=== PATIENT | female | born 1935 | race Caucasian/White ===

== ENCOUNTER 2018-04-12 11:42 | Emergency (ER) | payer MEDICARE, OTHER ==
[~2018-04-12] VITALS: Ht 167.6 cm; Wt 90.2 kg
[2018-04-12 14:18] LABS: BASOPHILS % (AUTO) 0.4 % (0-1); EOSINOPHILS # (AUTO) 0.1 X10'3 (0-0.9); EOSINOPHILS % (AUTO) 1.8 % (0-6); HEMATOCRIT 44.4 % (35.0-45.0); HEMOGLOBIN 14.9 g/dl (12.0-16.0); LYMPHOCYTES # (AUTO) 1.1 X10'3 (1.1-4.8); LYMPHOCYTES % (AUTO) 19.5 % (21-51); MEAN CORPUSCULAR HEMOGLOBIN 33.7 PG (27.0-31.0); MEAN CORPUSCULAR HGB CONC 33.6 % (33.0-36.5); MEAN CORPUSCULAR VOLUME 100.3 FL (78-98); MEAN PLATELET VOLUME 7.8 FL (7.4-10.4); MONOCYTES # (AUTO) 0.7 X10'3 (0-0.9); MONOCYTES % (AUTO) 12.4 % (2-12); NEUTROPHILS # (AUTO) 3.8 X10'3 (1.8-7.7); NEUTROPHILS % (AUTO) 65.9 % (42-75); PLATELET COUNT 169 X10'3 (140-440); RED BLOOD COUNT 4.43 X10'6 (4.20-5.60); RED CELL DISTRIBUTION WIDTH 13.5 % (11.5-14.5); WHITE BLOOD COUNT 5.7 X10'3 (4.5-11.0)
[2018-04-12 14:38] LABS: ALANINE AMINOTRANSFERASE 58 U/L (12-78); ALBUMIN 3.8 G/DL (3.4-5.0); ALKALINE PHOSPHATASE 99 IU/L (46-116); ANION GAP 12 (8-16); ASPARTATE AMINO TRANSFERASE 112 U/L (10-37); BILIRUBIN,TOTAL 0.8 MG/DL (0.1-1.0); BLOOD UREA NITROGEN 6 MG/DL (7-18); CALCIUM 8.7 MG/DL (8.5-10.1); CHLORIDE 99 MMOL/L (99-107); CREATININE 0.67 MG/DL (0.40-0.90); POTASSIUM 3.4 MMOL/L (3.5-5.1); SODIUM 138 MMOL/L (135-145); TOTAL CARBON DIOXIDE 27.2 MMOL/L (24-32); TOTAL PROTEIN 7.5 G/DL (6.4-8.2); eGFR 84 ML/MIN
[2018-04-12 14:41] LABS: GLUCOSE 106 MG/DL (70-104)
[2018-04-12] MEDS ORDERED: FURO-150 PO (15:14)
[2018-04-12] MEDS ORDERED: POTA25TA11 PO (15:14)
[2018-04-12 15:51] VITALS: BP 159/94
== END 2018-04-12 15:52 | disposition home or self-care (01) ==
LOC: ER 11:42
DX: R60.9 Edema, unspecified (principal); I10 Essential (primary) hypertension; R06.02 Shortness of breath; Z98.890 Other specified postprocedural states; Z79.899 Other long term (current) drug therapy
CPT/HCPCS: 36415; 71045; 80053; 83880; 84484; 85025; 93005; 99284

== ENCOUNTER 2021-10-08 09:42 | Inpatient (IN) | payer MEDICARE, OTHER ==
[~2021-10-08] VITALS: Ht 165.1 cm; Wt 86.4 kg
[~2021-10-08 09:42] MED LIST: POTA25TA11 PO; iohexol 350MG/ML 100ml bottle IV ONE
[2021-10-08 10:24] LABS: BASOPHILS % (AUTO) 0.5 % (0-1); EOSINOPHILS # (AUTO) 0.1 X10'3 (0-0.9); HEMATOCRIT 38.7 % (35.0-45.0); HEMOGLOBIN 13.4 g/dl (12.0-16.0); LYMPHOCYTES # (AUTO) 0.8 X10'3 (1.1-4.8); LYMPHOCYTES % (AUTO) 14.7 % (21-51); MEAN CORPUSCULAR HEMOGLOBIN 33.1 PG (27.0-31.0); MEAN CORPUSCULAR HGB CONC 34.6 g/dL (33.0-36.5); MEAN CORPUSCULAR VOLUME 95.6 FL (78-98); MEAN PLATELET VOLUME 6.9 FL (7.4-10.4); MONOCYTES # (AUTO) 0.7 X10'3 (0-0.9); MONOCYTES % (AUTO) 12.4 % (2-12); NEUTROPHILS # (AUTO) 3.9 X10'3 (1.8-7.7); NEUTROPHILS % (AUTO) 71.4 % (42-75); PLATELET COUNT 154 X10'3 (140-440); RED BLOOD COUNT 4.05 X10'6 (4.20-5.60); WHITE BLOOD COUNT 5.4 X10'3 (4.5-11.0)
[2021-10-08] MEDS ORDERED: MELO-100 PO ×2 (10:42)
[2021-10-08 10:55] LABS: D-DIMER 1.26 MG/L FEU (0-0.50)
[2021-10-08 10:56] LABS: CLARITY,URINE SLIGHTLY CLOUDY (Clear); COLOR,URINE YELLOW (Yellow); GLUCOSE, URINE NEGATIVE (Neg); KETONES,URINE NEGATIVE (Neg); LEUKOCYTE ESTERASE ,URINE TRACE (Neg); NITRITES, URINE NEGATIVE (Neg); OCCULT BLOOD,URINE NEGATIVE (Neg); PH,URINE 7.5 (4.8-8.0); PROTEIN,URINE NEGATIVE (Neg)
[2021-10-08 11:09] LABS: UA COLLECTION TYPE CLN CATCH MIDSTREAM
[2021-10-08 11:09] LABS: ALANINE AMINOTRANSFERASE 34 U/L (12-78); ALBUMIN 3.2 G/DL (3.4-5.0); ALKALINE PHOSPHATASE 79 IU/L (46-116); ANION GAP 12 (8-16); ASPARTATE AMINO TRANSFERASE 81 U/L (10-37); BILIRUBIN,TOTAL 1.5 MG/DL (0.1-1.0); BLOOD UREA NITROGEN 5 MG/DL (7-18); BUN/CREATININE RATIO 8.9 (6.6-38.0); CALCIUM 8.2 MG/DL (8.5-10.1); CHLORIDE 79 MMOL/L (99-107); CREATININE 0.56 MG/DL (0.40-0.90); TOTAL CARBON DIOXIDE 28.8 MMOL/L (24-32); TOTAL PROTEIN 6.3 G/DL (6.4-8.2); eGFR > 90 ML/MIN
[2021-10-08 11:11] LABS: BACTERIA,URINE 4+ /HPF (Neg); MUCUS STRANDS NONE SEEN /LPF (Neg); RBC,URINE NONE SEEN /HPF (0-2); SQUAMOUS EPITHELIAL CELL,UR FEW /LPF (FEW); WBC,URINE 0-4 /HPF (0-4)
[2021-10-08 11:11] LABS: GLUCOSE 106 MG/DL (70-104)
[2021-10-08 11:20] LABS: SODIUM 120 MMOL/L (135-145)
[2021-10-08 11:21] LABS: POTASSIUM 2.8 MMOL/L (3.5-5.1)
[2021-10-08] MEDS ORDERED: iohexol 350MG/ML 100ml bottle IV ONE (12:00)
[2021-10-08] MEDS ORDERED: MECL-159 PO (12:12)
[2021-10-08] MEDS ORDERED: LOP12.5T PO (12:12)
[2021-10-08] MEDS ORDERED: CITA10TA93 PO (12:12)
[2021-10-08] MEDS ORDERED: ATOR20TA PO (12:12)
[2021-10-08] MEDS ORDERED: ROPI1TAB6 PO (12:12)
[2021-10-08] MEDS ORDERED: potassium Cl 20 mEq SR tablet PO STA (12:58)
[2021-10-08] MEDS ORDERED: PERFLUTREN PROTEIN-A MICROSPHR (Optison) 0.22 MG/ML 3ML VIAL IV ONE (15:50)
[2021-10-08] MEDS ORDERED: magnesium Cl slow-release 64mg tablet PO PRN (15:50)
[2021-10-08] MEDS ORDERED: mag hydrox/Alum hydrox/simeth 30ml oral suspension PO PRN (15:50)
[2021-10-08] MEDS ORDERED: acetaminophen 325mg tablet PO PRN ×2 (15:50)
[2021-10-08] MEDS ORDERED: bisacodyl 10mg suppository rectal RC PRN (15:50)
[2021-10-08] MEDS ORDERED: magnesium 2GM in 50ml NS 50 ML IV PRN (15:50)
[2021-10-08] MEDS ORDERED: diphenhydrAMINE 25mg capsule PO PRN (15:50)
[2021-10-08] MEDS ORDERED: acetaminophen 650mg rectal suppository RC PRN (15:50)
[2021-10-08] MEDS ORDERED: magnesium 4gm in 100ml NS 100 ML IV PRN (15:50)
[2021-10-08] MEDS ORDERED: POTASSIUM BICARB 20meq eff tab 20 MEQ TABLET.EFF PO PRN (15:50)
[2021-10-08] MEDS ORDERED: potassium CL 10mEq/100ml bag 100 ML IV PRN (15:50)
[2021-10-08] MEDS: normal saline 1000ml 1,000 ML IV SCH (16:05)
[2021-10-08] MEDS: levoFLOXACIN-Levaquin 750MG/D5 150 ML IV SCH (16:23)
[2021-10-08 17:18] LABS: ALBUMIN 3.4 G/DL (3.4-5.0); ANION GAP 11 (8-16); BLOOD UREA NITROGEN 5 MG/DL (7-18); BUN/CREATININE RATIO 8.2 (6.6-38.0); CALCIUM 8.4 MG/DL (8.5-10.1); CHLORIDE 81 MMOL/L (99-107); CREATININE 0.61 MG/DL (0.40-0.90); POTASSIUM 3.1 MMOL/L (3.5-5.1); SODIUM 122 MMOL/L (135-145); TOTAL CARBON DIOXIDE 30.3 MMOL/L (24-32); eGFR > 90 ML/MIN
[2021-10-08 17:19] LABS: HEMOGLOBIN A1C 5.4 % (4.5-6.2)
[2021-10-08 17:20] LABS: GLUCOSE 124 MG/DL (70-104)
[2021-10-08] MEDS ORDERED: meclizine 12.5mg tablet PO PRN (17:40)
[2021-10-08] MEDS: ROPINIRole 1mg tablet PO SCH (18:04)
--- NOTE | 2021-10-08 18:48 | NUR ---
KEYON GAN [phone], KHAI GAN [phone], HOME PHONE [phone] PLEASE CALL WITH UPDATES
[2021-10-08] MEDS: ipratropium/albuterol 3ml nebule NEB SCH ×2 (19:39→23:02)
[2021-10-08] MEDS: K and/or MAG REPLACEMENT MC SCH (20:00)
[2021-10-08] MEDS: docusate sod 100mg capsule PO SCH (20:00)
[2021-10-08] MEDS: atorvastatin 20mg tablet PO SCH (21:30)
[2021-10-08] MEDS: heparin, porcine 5000 units/ml vial SQ SCH (21:31)
[2021-10-08] MEDS: metoprolol tartrate 12.5mg (1/2 tablet) PO SCH (21:35)
[2021-10-08 22:11] LABS: CLARITY,URINE SLIGHTLY CLOUDY (Clear); COLOR,URINE YELLOW (Yellow); GLUCOSE, URINE NEGATIVE (Neg); KETONES,URINE NEGATIVE (Neg); LEUKOCYTE ESTERASE ,URINE NEGATIVE (Neg); NITRITES, URINE NEGATIVE (Neg); OCCULT BLOOD,URINE NEGATIVE (Neg); PROTEIN,URINE NEGATIVE (Neg); UROBILINOGEN,URINE 0.2 E.U/dL (0.2-1.0)
[2021-10-08 22:17] LABS: UA COLLECTION TYPE OTHER
[2021-10-08 22:19] LABS: BACTERIA,URINE 4+ /HPF (Neg); RBC,URINE 0-2 /HPF (0-2); SQUAMOUS EPITHELIAL CELL,UR MODERATE /LPF (FEW)
[2021-10-08] MEDS: ondansetron/PF 4mg/2ml inj IV PRN (23:01)
[2021-10-08 23:30] VITALS: BP 167/58
[2021-10-09] MEDS: normal saline 1000ml 1,000 ML IV SCH ×4 (01:20→23:32)
[2021-10-09 02:00] VITALS: BP 158/77
[2021-10-09] MEDS: ipratropium/albuterol 3ml nebule NEB SCH ×5 (03:10→20:13)
[2021-10-09 06:23] LABS: BASOPHILS % (AUTO) 0.3 % (0-1); EOSINOPHILS # (AUTO) 0.1 X10'3 (0-0.9); EOSINOPHILS % (AUTO) 1.2 % (0-6); HEMATOCRIT 38.4 % (35.0-45.0); HEMOGLOBIN 13.1 g/dl (12.0-16.0); LYMPHOCYTES # (AUTO) 0.9 X10'3 (1.1-4.8); LYMPHOCYTES % (AUTO) 20.4 % (21-51); MEAN CORPUSCULAR HGB CONC 34.2 g/dL (33.0-36.5); MEAN CORPUSCULAR VOLUME 96.6 FL (78-98); MEAN PLATELET VOLUME 7.7 FL (7.4-10.4); MONOCYTES # (AUTO) 0.7 X10'3 (0-0.9); MONOCYTES % (AUTO) 16.1 % (2-12); NEUTROPHILS # (AUTO) 2.8 X10'3 (1.8-7.7); PLATELET COUNT 156 X10'3 (140-440); RED BLOOD COUNT 3.98 X10'6 (4.20-5.60); RED CELL DISTRIBUTION WIDTH 13.1 % (11.5-14.5); WHITE BLOOD COUNT 4.6 X10'3 (4.5-11.0)
[2021-10-09 06:58] LABS: ALANINE AMINOTRANSFERASE 32 U/L (12-78); ALBUMIN/GLOBULIN RATIO 0.9 (1.1-1.5); ALKALINE PHOSPHATASE 68 IU/L (46-116); ANION GAP 11 (8-16); ASPARTATE AMINO TRANSFERASE 70 U/L (10-37); BILIRUBIN,TOTAL 1.6 MG/DL (0.1-1.0); BLOOD UREA NITROGEN 5 MG/DL (7-18); BUN/CREATININE RATIO 8.1 (6.6-38.0); CALCIUM 7.9 MG/DL (8.5-10.1); CHLORIDE 84 MMOL/L (99-107); CHOL/HDL RATIO 1.6 (0.00-4.99); CHOLESTEROL 127 MG/DL (0-200); CREATININE 0.62 MG/DL (0.40-0.90); GLUCOSE 106 MG/DL (70-104); HDL CHOLESTEROL 80 MG/DL (35-60); LDL CHOLESTEROL 33 MG/DL (50-100); MAGNESIUM 1.5 MG/DL (1.5-2.4); PHOSPHORUS 3.3 MG/DL (2.3-4.5); POTASSIUM 3.1 MMOL/L (3.5-5.1); SODIUM 123 MMOL/L (135-145); TOTAL CARBON DIOXIDE 27.8 MMOL/L (24-32); TOTAL PROTEIN 6.3 G/DL (6.4-8.2); TRIGLYCERIDES 47 MG/DL (20-135); eGFR > 90 ML/MIN
[2021-10-09 07:15] LABS: PLATELET ESTIMATE NORMAL; TOTAL CELLS COUNTED 100
[2021-10-09] MEDS: CITALOpram 10mg tablet PO SCH (07:23)
[2021-10-09] MEDS: heparin, porcine 5000 units/ml vial SQ SCH ×2 (07:23→22:23)
[2021-10-09] MEDS: metoprolol tartrate 12.5mg (1/2 tablet) PO SCH ×2 (07:24→22:27)
[2021-10-09] MEDS: POTASSIUM BICARB 20meq eff tab 20 MEQ TABLET.EFF PO PRN ×3 (07:24→17:24)
[2021-10-09] MEDS: docusate sod 100mg capsule PO SCH ×2 (07:24→20:00)
[2021-10-09] MEDS: levoFLOXACIN-Levaquin 750MG/D5 150 ML IV SCH (07:25)
[2021-10-09 08:00] VITALS: BP_SYST 113; BP_SYST 135; BP_SYST 173; BP_DIAS 57; BP_DIAS 59; BP_DIAS 87
[2021-10-09] MEDS: K and/or MAG REPLACEMENT MC SCH ×2 (08:00→19:00)
[2021-10-09 11:00] VITALS: BP 113/57
[2021-10-09 11:30] VITALS: BP 135/59
[2021-10-09] MEDS: ROPINIRole 1mg tablet PO SCH (17:00)
[2021-10-09] MEDS: ondansetron/PF 4mg/2ml inj IV PRN (17:00)
--- NOTE | 2021-10-09 17:40 | NUR ---
Tried to taper O2 down and patient sat went to 70. Ended up bumping up his O2 to 3L
[2021-10-09 18:00] VITALS: BP 155/71
--- NOTE | 2021-10-09 20:31 | NUR ---
report from Nahun and Nilay TORRES's
[2021-10-09] MEDS ORDERED: LORazepam 2 mg/ml vial IV PRN (21:55)
[2021-10-09 22:00] VITALS: BP 160/81
[2021-10-09] MEDS ORDERED: magnesium 2GM in 50ml NS 50 ML IV ONE (22:05)
[2021-10-09] MEDS: LORazepam 1 MG tablet PO PRN (22:25)
[2021-10-09] MEDS: atorvastatin 20mg tablet PO SCH (22:27)
[2021-10-09] MEDS ORDERED: diatr meglu/diatrizoate 30ml oral sol.-(3 dose) bottle PO ONE (22:50)
[2021-10-09] MEDS: diatr meglu/diatrizoate 30ml oral sol.-(3 dose) bottle PO SCH (22:53)
[2021-10-10] MEDS: ipratropium/albuterol 3ml nebule NEB SCH ×7 (00:02→23:23)
[2021-10-10 02:00] VITALS: BP 144/81
[2021-10-10 06:00] VITALS: BP 175/99
--- NOTE | 2021-10-10 06:24 | NUR ---
Problems reprioritized. Patient report given, questions answered & plan of care reviewed with BINU TORRES.
[2021-10-10 06:27] LABS: ALANINE AMINOTRANSFERASE 33 U/L (12-78); ALBUMIN 3.3 G/DL (3.4-5.0); ALBUMIN/GLOBULIN RATIO 0.9 (1.1-1.5); ALKALINE PHOSPHATASE 76 IU/L (46-116); AMYLASE 28 U/L (25-115); ANION GAP 8 (8-16); ASPARTATE AMINO TRANSFERASE 70 U/L (10-37); BILIRUBIN,TOTAL 1.5 MG/DL (0.1-1.0); BLOOD UREA NITROGEN 4 MG/DL (7-18); BUN/CREATININE RATIO 7.5 (6.6-38.0); CALCIUM 8.1 MG/DL (8.5-10.1); CHLORIDE 84 MMOL/L (99-107); CREATININE 0.53 MG/DL (0.40-0.90); GLUCOSE 129 MG/DL (70-104); LIPASE 61 U/L (73-393); MAGNESIUM 1.7 MG/DL (1.5-2.4); POTASSIUM 3.5 MMOL/L (3.5-5.1); TOTAL PROTEIN 6.9 G/DL (6.4-8.2); eGFR > 90 ML/MIN
[2021-10-10 06:31] LABS: SODIUM 120 MMOL/L (135-145)
--- NOTE | 2021-10-10 06:36 | NUR ---
Patient in room PCU 3027. I have received report from Bina Sabillon and had the opportunity to ask questions and assume patient care.
--- NOTE | 2021-10-10 06:36 | NUR ---
Message: Ursula Garcia 3027B has a critical sodium level of 120. Please advise. Gemma TORRES [phone]
[2021-10-10 06:45] LABS: BASOPHILS % (AUTO) 0.3 % (0-1); EOSINOPHILS # (AUTO) 0.1 X10'3 (0-0.9); EOSINOPHILS % (AUTO) 1.4 % (0-6); HEMATOCRIT 40.6 % (35.0-45.0); LYMPHOCYTES # (AUTO) 0.7 X10'3 (1.1-4.8); LYMPHOCYTES % (AUTO) 11.4 % (21-51); MEAN CORPUSCULAR HGB CONC 34.6 g/dL (33.0-36.5); MEAN CORPUSCULAR VOLUME 98.2 FL (78-98); MEAN PLATELET VOLUME 7.4 FL (7.4-10.4); MONOCYTES # (AUTO) 0.7 X10'3 (0-0.9); NEUTROPHILS # (AUTO) 4.4 X10'3 (1.8-7.7); NEUTROPHILS % (AUTO) 74.9 % (42-75); PLATELET COUNT 158 X10'3 (140-440); RED BLOOD COUNT 4.13 X10'6 (4.20-5.60); WHITE BLOOD COUNT 5.9 X10'3 (4.5-11.0)
--- NOTE | 2021-10-10 06:56 | NUR ---
Problems reprioritized. Patient report given, questions answered & plan of care reviewed with Lew rodriguez.
[2021-10-10] MEDS: diatr meglu/diatrizoate 30ml oral sol.-(3 dose) bottle PO SCH ×2 (07:42→20:47)
[2021-10-10] MEDS: CITALOpram 10mg tablet PO SCH (07:46)
[2021-10-10] MEDS: levoFLOXACIN-Levaquin 750MG/D5 150 ML IV SCH (07:46)
[2021-10-10] MEDS: docusate sod 100mg capsule PO SCH ×2 (07:46→20:35)
[2021-10-10] MEDS: metoprolol tartrate 12.5mg (1/2 tablet) PO SCH ×2 (07:47→20:36)
[2021-10-10] MEDS: heparin, porcine 5000 units/ml vial SQ SCH ×2 (07:47→20:37)
[2021-10-10 08:00] VITALS: BP_SYST 115; BP_SYST 136; BP_SYST 171; BP_DIAS 58; BP_DIAS 59; BP_DIAS 89
[2021-10-10] MEDS: folic acid 1mg/0.2ml inj IV SCH (08:00)
[2021-10-10] MEDS: K and/or MAG REPLACEMENT MC SCH ×2 (08:00→20:00)
[2021-10-10] MEDS: multivitamins, therapeutics tablet PO SCH (08:00)
[2021-10-10] MEDS ORDERED: iohexol 300mg/ml 100ml inj. ONE (10:00)
[2021-10-10 15:00] VITALS: BP 110/69
[2021-10-10] MEDS: ROPINIRole 1mg tablet PO SCH (16:43)
[2021-10-10] MEDS: magnesium hydroxide 30ml (MOM) UD suspension PO PRN (16:44)
--- NOTE | 2021-10-10 17:15 | NUR ---
Aiyana Garcia [id number] her son and daughter ej have called and requested update on diagnostic results from today. Los [phone]. Thank you! Gemma TORRES [phone]
[2021-10-10 18:00] VITALS: BP 170/85
[2021-10-10] MEDS: sodium chloride 1gm tablet PO SCH ×2 (18:25→22:00)
[2021-10-10] MEDS: atorvastatin 20mg tablet PO SCH (20:35)
[2021-10-10 22:00] VITALS: BP 173/85
[2021-10-11] MEDS: normal saline 1000ml 1,000 ML IV SCH (00:33)
[2021-10-11 02:00] VITALS: BP 160/80
[2021-10-11] MEDS: ipratropium/albuterol 3ml nebule NEB SCH ×6 (03:12→23:28)
[2021-10-11 06:00] VITALS: BP 177/95
--- NOTE | 2021-10-11 06:14 | NUR ---
Patient in room PCU 3027. I have received report from BRIAN Pemberton and gloria Catalan RN and had the opportunity to ask questions and assume patient care.
[2021-10-11 06:54] LABS: BASOPHILS % (AUTO) 0.4 % (0-1); EOSINOPHILS # (AUTO) 0.1 X10'3 (0-0.9); EOSINOPHILS % (AUTO) 2.9 % (0-6); HEMATOCRIT 36.4 % (35.0-45.0); HEMOGLOBIN 12.5 g/dl (12.0-16.0); LYMPHOCYTES # (AUTO) 0.9 X10'3 (1.1-4.8); LYMPHOCYTES % (AUTO) 18.4 % (21-51); MEAN CORPUSCULAR HEMOGLOBIN 33.4 PG (27.0-31.0); MEAN CORPUSCULAR HGB CONC 34.3 g/dL (33.0-36.5); MEAN CORPUSCULAR VOLUME 97.3 FL (78-98); MEAN PLATELET VOLUME 7.5 FL (7.4-10.4); MONOCYTES # (AUTO) 0.8 X10'3 (0-0.9); MONOCYTES % (AUTO) 15.7 % (2-12); NEUTROPHILS % (AUTO) 62.6 % (42-75); PLATELET COUNT 154 X10'3 (140-440); RED BLOOD COUNT 3.74 X10'6 (4.20-5.60); RED CELL DISTRIBUTION WIDTH 13.2 % (11.5-14.5); WHITE BLOOD COUNT 4.9 X10'3 (4.5-11.0)
[2021-10-11 07:13] LABS: ALANINE AMINOTRANSFERASE 30 U/L (12-78); ALBUMIN 2.7 G/DL (3.4-5.0); ALBUMIN/GLOBULIN RATIO 0.9 (1.1-1.5); ALKALINE PHOSPHATASE 64 IU/L (46-116); AMYLASE 26 U/L (25-115); ANION GAP 8 (8-16); ASPARTATE AMINO TRANSFERASE 62 U/L (10-37); BILIRUBIN,TOTAL 1.2 MG/DL (0.1-1.0); BLOOD UREA NITROGEN 6 MG/DL (7-18); BUN/CREATININE RATIO 11.1 (6.6-38.0); CALCIUM 7.8 MG/DL (8.5-10.1); CHLORIDE 86 MMOL/L (99-107); CREATININE 0.54 MG/DL (0.40-0.90); GLUCOSE 107 MG/DL (70-104); LIPASE 64 U/L (73-393); MAGNESIUM 1.9 MG/DL (1.5-2.4); PHOSPHORUS 2.9 MG/DL (2.3-4.5); POTASSIUM 3.7 MMOL/L (3.5-5.1); SODIUM 122 MMOL/L (135-145); TOTAL CARBON DIOXIDE 28.2 MMOL/L (24-32); TOTAL PROTEIN 5.8 G/DL (6.4-8.2); eGFR > 90 ML/MIN
[2021-10-11] MEDS: levoFLOXACIN-Levaquin 750MG/D5 150 ML IV SCH (07:36)
[2021-10-11] MEDS: multivitamins, therapeutics tablet PO SCH (07:37)
[2021-10-11] MEDS: metoprolol tartrate 12.5mg (1/2 tablet) PO SCH ×2 (07:37→20:00)
[2021-10-11] MEDS: CITALOpram 10mg tablet PO SCH (07:37)
[2021-10-11] MEDS: heparin, porcine 5000 units/ml vial SQ SCH ×2 (07:37→20:50)
[2021-10-11] MEDS: docusate sod 100mg capsule PO SCH ×2 (07:37→20:50)
[2021-10-11] MEDS: sodium chloride 1gm tablet PO SCH ×4 (07:37→20:50)
[2021-10-11] MEDS: folic acid 1mg/0.2ml inj IV SCH (07:38)
[2021-10-11] MEDS: K and/or MAG REPLACEMENT MC SCH ×2 (08:00→20:00)
[2021-10-11 08:41] LABS: TOTAL PROTEIN,URINE RANDOM 9.8 MG/DL
[2021-10-11 11:00] VITALS: BP_SYST 160; BP_SYST 168; BP_SYST 169; BP_DIAS 84; BP_DIAS 86
[2021-10-11] MEDS: magnesium hydroxide 30ml (MOM) UD suspension PO PRN (13:41)
--- NOTE | 2021-10-11 14:04 | NUR ---
update via T/C to daughter in law Martha
[2021-10-11 15:00] VITALS: BP 183/87
[2021-10-11] MEDS: ROPINIRole 1mg tablet PO SCH (17:30)
[2021-10-11 18:00] VITALS: BP 130/64
--- NOTE | 2021-10-11 18:44 | NUR ---
Problems reprioritized. Patient report given, questions answered & plan of care reviewed with BRIAN Pemberton and gloria aCtalan RN.
[2021-10-11] MEDS: atorvastatin 20mg tablet PO SCH (20:50)
[2021-10-11 22:00] VITALS: BP 161/77
--- NOTE | 2021-10-11 23:14 | NUR ---
Reported to BRIAN Morris
[2021-10-12] VITALS (8 sets, daily range): BP systolic 119–209; BP diastolic 55–106
[2021-10-12] MEDS: ipratropium/albuterol 3ml nebule NEB SCH ×6 (03:32→22:51)
[2021-10-12] MEDS: LORazepam 1 MG tablet PO PRN (04:10)
--- NOTE | 2021-10-12 04:13 | NUR ---
patient feeling restless, says her legs are jumping and she cant sleep, PRN ativan for anxiety and agitation given.
[2021-10-12 06:41] LABS: BASOPHILS % (AUTO) 0.5 % (0-1); EOSINOPHILS # (AUTO) 0.1 X10'3 (0-0.9); EOSINOPHILS % (AUTO) 2.7 % (0-6); HEMOGLOBIN 13.5 g/dl (12.0-16.0); LYMPHOCYTES # (AUTO) 0.8 X10'3 (1.1-4.8); LYMPHOCYTES % (AUTO) 15.4 % (21-51); MEAN CORPUSCULAR HEMOGLOBIN 33.7 PG (27.0-31.0); MEAN CORPUSCULAR HGB CONC 34.6 g/dL (33.0-36.5); MEAN CORPUSCULAR VOLUME 97.6 FL (78-98); MEAN PLATELET VOLUME 7.4 FL (7.4-10.4); MONOCYTES # (AUTO) 0.7 X10'3 (0-0.9); MONOCYTES % (AUTO) 14.6 % (2-12); NEUTROPHILS # (AUTO) 3.3 X10'3 (1.8-7.7); NEUTROPHILS % (AUTO) 66.8 % (42-75); PLATELET COUNT 175 X10'3 (140-440); RED CELL DISTRIBUTION WIDTH 13.2 % (11.5-14.5); WHITE BLOOD COUNT 4.9 X10'3 (4.5-11.0)
[2021-10-12 06:56] LABS: ALANINE AMINOTRANSFERASE 37 U/L (12-78); ALBUMIN 3.1 G/DL (3.4-5.0); ALBUMIN/GLOBULIN RATIO 0.9 (1.1-1.5); ALKALINE PHOSPHATASE 72 IU/L (46-116); AMYLASE 35 U/L (25-115); ANION GAP 9 (8-16); ASPARTATE AMINO TRANSFERASE 71 U/L (10-37); BILIRUBIN,TOTAL 1.4 MG/DL (0.1-1.0); BLOOD UREA NITROGEN 6 MG/DL (7-18); BUN/CREATININE RATIO 11.1 (6.6-38.0); CALCIUM 8.2 MG/DL (8.5-10.1); CHLORIDE 87 MMOL/L (99-107); CREATININE 0.54 MG/DL (0.40-0.90); GLUCOSE 103 MG/DL (70-104); LIPASE 166 U/L (73-393); MAGNESIUM 2.1 MG/DL (1.5-2.4); PHOSPHORUS 2.6 MG/DL (2.3-4.5); POTASSIUM 3.8 MMOL/L (3.5-5.1); SODIUM 122 MMOL/L (135-145); TOTAL PROTEIN 6.6 G/DL (6.4-8.2); eGFR > 90 ML/MIN
--- NOTE | 2021-10-12 07:09 | NUR ---
Esthela Chapman [facility] Marcy RN [id number]:Aiyana Garcia. 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 I repeated it 198/106 HR 67. Can we get order for IV Hydralazine? I will go ahead give her 08:00 am dose of Lopressor 12.5 mg PO now
[2021-10-12] MEDS: docusate sod 100mg capsule PO SCH ×2 (07:13→20:00)
[2021-10-12] MEDS: CITALOpram 10mg tablet PO SCH (07:14)
[2021-10-12] MEDS: multivitamins, therapeutics tablet PO SCH (07:14)
[2021-10-12] MEDS: metoprolol tartrate 12.5mg (1/2 tablet) PO SCH ×2 (07:14→21:41)
[2021-10-12] MEDS: levoFLOXACIN-Levaquin 750MG/D5 150 ML IV SCH (07:14)
[2021-10-12] MEDS: K and/or MAG REPLACEMENT MC SCH ×2 (08:00→20:00)
[2021-10-12] MEDS: sodium chloride 1gm tablet PO SCH ×4 (10:18→21:50)
[2021-10-12] MEDS: heparin, porcine 5000 units/ml vial SQ SCH (10:18)
[2021-10-12] MEDS: folic acid 1mg/0.2ml inj IV SCH (10:18)
--- NOTE | 2021-10-12 10:52 | NUR ---
Dr. Chapman seen patient, made rounds with the Electrical Designer Rosamaria. Per Dr. Chapman, patient will need to have liver biospy and that he would talk to the Interventional Radiologist
--- NOTE | 2021-10-12 11:38 | NUR ---
Initial: Pt admitted w/ generalized weakness, hyponatremia, PNA, and liver mass per EMR. Currently on Heart Healthy diet w/ avg intake 60% of meals, likely meeting minimum est nutrient needs at this time. Recommend liberalizing to Regular diet given lipid panel and pt currently receiving salt tabs. M 10/11 receiving routine and PRN bowel care. Will continue to monitor Recs: 1. Liberalize to Regular diet given lipid panel and currently receiving salt tabs 2. Bowel care per rx 3. Scaled wts this admit Addendum: 10/12/21 at [address] Amended: Links added.
[2021-10-12] MEDS: ROPINIRole 1mg tablet PO SCH (16:13)
[2021-10-12] MEDS: atorvastatin 20mg tablet PO SCH (21:40)
[2021-10-13] VITALS (18 sets, daily range): BP systolic 145–181; BP diastolic 62–99
[2021-10-13] MEDS: ipratropium/albuterol 3ml nebule NEB SCH ×6 (03:23→23:16)
[2021-10-13 06:02] LABS: BASOPHILS % (AUTO) 0.4 % (0-1); EOSINOPHILS # (AUTO) 0.1 X10'3 (0-0.9); EOSINOPHILS % (AUTO) 2.6 % (0-6); HEMATOCRIT 38.9 % (35.0-45.0); HEMOGLOBIN 13.4 g/dl (12.0-16.0); LYMPHOCYTES # (AUTO) 0.7 X10'3 (1.1-4.8); LYMPHOCYTES % (AUTO) 15.3 % (21-51); MEAN CORPUSCULAR HEMOGLOBIN 33.5 PG (27.0-31.0); MEAN CORPUSCULAR HGB CONC 34.5 g/dL (33.0-36.5); MEAN CORPUSCULAR VOLUME 97.2 FL (78-98); MEAN PLATELET VOLUME 7.1 FL (7.4-10.4); MONOCYTES # (AUTO) 0.7 X10'3 (0-0.9); MONOCYTES % (AUTO) 15.4 % (2-12); NEUTROPHILS % (AUTO) 66.3 % (42-75); PLATELET COUNT 188 X10'3 (140-440); RED CELL DISTRIBUTION WIDTH 13.3 % (11.5-14.5); WHITE BLOOD COUNT 4.5 X10'3 (4.5-11.0)
[2021-10-13 06:14] LABS: ALANINE AMINOTRANSFERASE 33 U/L (12-78); ALBUMIN 3.1 G/DL (3.4-5.0); ALBUMIN/GLOBULIN RATIO 0.9 (1.1-1.5); ALKALINE PHOSPHATASE 70 IU/L (46-116); AMYLASE 42 U/L (25-115); ANION GAP 6 (8-16); ASPARTATE AMINO TRANSFERASE 55 U/L (10-37); BILIRUBIN,TOTAL 1.2 MG/DL (0.1-1.0); BLOOD UREA NITROGEN 5 MG/DL (7-18); BUN/CREATININE RATIO 9.1 (6.6-38.0); CHLORIDE 86 MMOL/L (99-107); CREATININE 0.55 MG/DL (0.40-0.90); LIPASE 252 U/L (73-393); MAGNESIUM 1.9 MG/DL (1.5-2.4); PHOSPHORUS 2.8 MG/DL (2.3-4.5); POTASSIUM 3.6 MMOL/L (3.5-5.1); TOTAL CARBON DIOXIDE 27.5 MMOL/L (24-32); TOTAL PROTEIN 6.4 G/DL (6.4-8.2); eGFR > 90 ML/MIN
[2021-10-13 06:16] LABS: GLUCOSE 119 MG/DL (70-104)
[2021-10-13 06:28] LABS: SODIUM 119 MMOL/L (135-145)
--- NOTE | 2021-10-13 06:36 | NUR ---
Paged Dr. Jimenez PAGER ID: [phone] MESSAGE: RAFAEL Vidal RN ext [phone] RE: Aiyana Crain. Reporting critical lab value Na of 119. Patient currently on NaCL pill 1gram QID
[2021-10-13] MEDS: sodium chloride 1gm tablet PO SCH ×4 (07:24→19:00)
[2021-10-13] MEDS: CITALOpram 10mg tablet PO SCH (07:24)
[2021-10-13] MEDS: multivitamins, therapeutics tablet PO SCH (07:24)
[2021-10-13] MEDS: levoFLOXACIN-Levaquin 750MG/D5 150 ML IV SCH (07:24)
[2021-10-13] MEDS: docusate sod 100mg capsule PO SCH ×2 (07:25→19:00)
[2021-10-13] MEDS: metoprolol tartrate 12.5mg (1/2 tablet) PO SCH ×2 (07:25→19:00)
[2021-10-13] MEDS: K and/or MAG REPLACEMENT MC SCH ×2 (08:00→18:42)
[2021-10-13 08:11] LABS: PLATELET ESTIMATE NORMAL; TOTAL CELLS COUNTED 100
--- NOTE | 2021-10-13 08:41 | NUR ---
I called angio/IR to find out what time the liver biopsy will get done today, the IR staff told me it would probably in the afternoon. He told me that they would have to do the outpatient first in the morning.
[2021-10-13 11:33] LABS: SODIUM,URINE RANDOM 131 MEQ/L
[2021-10-13 12:12] LABS: AFP,SERUM, TUMOR MARKER 1.8 ng/mL (0.0-8.7); CARCINOEMBRYONIC ANTIGEN 2.3 ng/mL (0.0-4.7)
[2021-10-13 12:13] LABS: OSMOLALITY UA 362 MOSM/K (50-1400)
--- NOTE | 2021-10-13 12:50 | NUR ---
Paged Dr. Chapman U Marcy RN ext [phone] RE: Aiyana Garcia. Patient BP 171/80, HR 61 she already got her Lopressor 12.5 mg this am. Do you want her to have PRN Hydralazine IV?
[2021-10-13] MEDS ORDERED: midazolam 1 mg/ML 2ml injection ONE (14:18)
[2021-10-13] MEDS ORDERED: fentaNYL/PF 50MCG/1 ML 2ML syringe ONE (14:19)
[2021-10-13] MEDS ORDERED: LIDOcaine 1%/PF 5ML 10 MG/ML VIAL ONE (14:29)
[2021-10-13] MEDS ORDERED: normal saline 1000ml 1,000 ML IV SCH (14:30)
--- NOTE | 2021-10-13 14:42 | NUR ---
Patient currently not in her room, patient went to IR/Angio for liver biopsy
--- NOTE | 2021-10-13 15:54 | NUR ---
Patient just got cifuentes from IR not too long ago accompanied by IR staff. IR nurse reported to me that patient need to stay on her right side until 16:30, check for bleeding then flat on bed until 18:30 and check for bleeding. Patient was instructed about this instruction, she verbalized understanding.
[2021-10-13] MEDS: ROPINIRole 1mg tablet PO SCH (16:38)
--- NOTE | 2021-10-13 16:39 | NUR ---
right upper abdomen bandage clean, dry, and intact - no bleeding. Patient now flat on bed. Patient was instructed that she need to stay flat on bed until 06:30 pm.
[2021-10-13] MEDS: atorvastatin 20mg tablet PO SCH (19:00)
[2021-10-14 02:00] VITALS: BP 169/80
[2021-10-14] MEDS: ipratropium/albuterol 3ml nebule NEB SCH ×6 (03:11→22:02)
[2021-10-14 06:00] VITALS: BP 179/105
[2021-10-14 06:19] LABS: AMYLASE 44 U/L (25-115); LIPASE 261 U/L (73-393)
[2021-10-14] MEDS: K and/or MAG REPLACEMENT MC SCH ×2 (08:00→20:00)
[2021-10-14] MEDS: multivitamins, therapeutics tablet PO SCH (08:01)
[2021-10-14] MEDS: folic acid 1mg tablet PO SCH (08:01)
[2021-10-14] MEDS: sodium chloride 1gm tablet PO SCH ×4 (08:02→20:58)
[2021-10-14] MEDS: CITALOpram 10mg tablet PO SCH (08:02)
[2021-10-14] MEDS: thiamine 100mg tablet PO SCH (08:02)
[2021-10-14] MEDS: docusate sod 100mg capsule PO SCH ×2 (08:02→20:58)
[2021-10-14] MEDS: levoFLOXACIN-Levaquin 750MG/D5 150 ML IV SCH (08:03)
[2021-10-14] MEDS: metoprolol tartrate 12.5mg (1/2 tablet) PO SCH ×2 (08:03→21:01)
[2021-10-14 09:27] LABS: BASOPHILS # (AUTO) 0.1 X10'3 (0-0.2); BASOPHILS % (AUTO) 1.3 % (0-1); EOSINOPHILS # (AUTO) 0.1 X10'3 (0-0.9); EOSINOPHILS % (AUTO) 2.5 % (0-6); HEMATOCRIT 39.3 % (35.0-45.0); HEMOGLOBIN 13.7 g/dl (12.0-16.0); LYMPHOCYTES # (AUTO) 0.8 X10'3 (1.1-4.8); LYMPHOCYTES % (AUTO) 16.1 % (21-51); MEAN CORPUSCULAR HEMOGLOBIN 33.6 PG (27.0-31.0); MEAN CORPUSCULAR HGB CONC 34.8 g/dL (33.0-36.5); MEAN CORPUSCULAR VOLUME 96.5 FL (78-98); MEAN PLATELET VOLUME 7.2 FL (7.4-10.4); MONOCYTES # (AUTO) 0.7 X10'3 (0-0.9); MONOCYTES % (AUTO) 14.8 % (2-12); NEUTROPHILS # (AUTO) 3.1 X10'3 (1.8-7.7); NEUTROPHILS % (AUTO) 65.3 % (42-75); PLATELET COUNT 208 X10'3 (140-440); RED BLOOD COUNT 4.07 X10'6 (4.20-5.60); RED CELL DISTRIBUTION WIDTH 13.3 % (11.5-14.5); WHITE BLOOD COUNT 4.7 X10'3 (4.5-11.0)
[2021-10-14 09:35] LABS: ALBUMIN 3.1 G/DL (3.4-5.0); BLOOD UREA NITROGEN 5 MG/DL (7-18); BUN/CREATININE RATIO 9.8 (6.6-38.0); CALCIUM 8.2 MG/DL (8.5-10.1); CHLORIDE 87 MMOL/L (99-107); CREATININE 0.51 MG/DL (0.40-0.90); GLUCOSE 108 MG/DL (70-104); POTASSIUM 3.6 MMOL/L (3.5-5.1); eGFR > 90 ML/MIN
[2021-10-14 09:40] LABS: TOTAL CARBON DIOXIDE 24.5 MMOL/L (24-32)
[2021-10-14 09:51] LABS: SODIUM 120 MMOL/L (135-145)
--- NOTE | 2021-10-14 10:16 | NUR ---
Message: Aiyana Bruce Critical value NA 120. Need clarification for fluid order as these were not DC'd yesterday but RNs stating do not give. Thank you. Kacy [phone]
[2021-10-14 11:00] VITALS: BP 116/69
[2021-10-14 11:43] LABS: ANION GAP 9 (8-16)
--- NOTE | 2021-10-14 15:38 | NUR ---
Message: Aiyana Garcia [id number] C/o nausea when taking sodium chloride tablets. Can I have order for Zofran or antiemetic? Kacy [phone]
[2021-10-14 15:46] VITALS: BP 154/86
[2021-10-14] MEDS: ROPINIRole 1mg tablet PO SCH (17:41)
[2021-10-14 18:00] VITALS: BP 173/83
[2021-10-14] MEDS: heparin, porcine 5000 units/ml vial SQ SCH (20:57)
[2021-10-14] MEDS: atorvastatin 20mg tablet PO SCH (20:58)
[2021-10-14 22:00] VITALS: BP 160/84
[2021-10-14] MEDS: ondansetron/PF 4mg/2ml inj IV PRN (22:50)
[2021-10-14 23:42] LABS: CLARITY,URINE CLEAR (Clear); COLOR,URINE YELLOW (Yellow); GLUCOSE, URINE NEGATIVE (Neg); KETONES,URINE NEGATIVE (Neg); LEUKOCYTE ESTERASE ,URINE NEGATIVE (Neg); NITRITES, URINE NEGATIVE (Neg); OCCULT BLOOD,URINE NEGATIVE (Neg); PROTEIN,URINE NEGATIVE (Neg)
[2021-10-14 23:43] LABS: UA COLLECTION TYPE NON-SPECIFIED
[2021-10-15] VITALS (7 sets, daily range): BP systolic 125–169; BP diastolic 65–82
[2021-10-15] MEDS: ipratropium/albuterol 3ml nebule NEB SCH ×6 (02:21→23:40)
[2021-10-15 06:24] LABS: BASOPHILS % (AUTO) 0.4 % (0-1); EOSINOPHILS # (AUTO) 0.1 X10'3 (0-0.9); EOSINOPHILS % (AUTO) 2.1 % (0-6); HEMATOCRIT 37.7 % (35.0-45.0); HEMOGLOBIN 13.2 g/dl (12.0-16.0); LYMPHOCYTES # (AUTO) 0.9 X10'3 (1.1-4.8); LYMPHOCYTES % (AUTO) 16.5 % (21-51); MEAN PLATELET VOLUME 7.1 FL (7.4-10.4); MONOCYTES # (AUTO) 0.9 X10'3 (0-0.9); MONOCYTES % (AUTO) 16.3 % (2-12); NEUTROPHILS # (AUTO) 3.6 X10'3 (1.8-7.7); NEUTROPHILS % (AUTO) 64.7 % (42-75); PLATELET COUNT 219 X10'3 (140-440); RED BLOOD COUNT 3.88 X10'6 (4.20-5.60); RED CELL DISTRIBUTION WIDTH 13.6 % (11.5-14.5); WHITE BLOOD COUNT 5.5 X10'3 (4.5-11.0)
[2021-10-15 07:12] LABS: ALANINE AMINOTRANSFERASE 34 U/L (12-78); ALBUMIN 2.9 G/DL (3.4-5.0); ALBUMIN/GLOBULIN RATIO 0.9 (1.1-1.5); ALKALINE PHOSPHATASE 81 IU/L (46-116); ANION GAP 6 (8-16); ASPARTATE AMINO TRANSFERASE 51 U/L (10-37); BILIRUBIN,TOTAL 1.1 MG/DL (0.1-1.0); BLOOD UREA NITROGEN 7 MG/DL (7-18); BUN/CREATININE RATIO 12.5 (6.6-38.0); CALCIUM 8.1 MG/DL (8.5-10.1); CHLORIDE 89 MMOL/L (99-107); CREATININE 0.56 MG/DL (0.40-0.90); GLUCOSE 111 MG/DL (70-104); MAGNESIUM 1.9 MG/DL (1.5-2.4); PHOSPHORUS 3.4 MG/DL (2.3-4.5); POTASSIUM 3.7 MMOL/L (3.5-5.1); TOTAL CARBON DIOXIDE 23.9 MMOL/L (24-32); TOTAL PROTEIN 6.2 G/DL (6.4-8.2); eGFR > 90 ML/MIN
[2021-10-15 07:19] LABS: PLATELET ESTIMATE NORMAL; TOTAL CELLS COUNTED 100
[2021-10-15 07:21] LABS: SODIUM 119 MMOL/L (135-145)
--- NOTE | 2021-10-15 07:24 | NUR ---
Message: Aiyana Garcia [id number] Critical value: NA 119 Kacy [phone]
[2021-10-15] MEDS: K and/or MAG REPLACEMENT MC SCH ×2 (08:00→18:53)
[2021-10-15] MEDS: docusate sod 100mg capsule PO SCH ×2 (08:14→20:00)
[2021-10-15] MEDS: thiamine 100mg tablet PO SCH (08:15)
[2021-10-15] MEDS: sodium chloride 1gm tablet PO SCH ×4 (08:15→21:23)
[2021-10-15] MEDS: metoprolol tartrate 12.5mg (1/2 tablet) PO SCH ×2 (08:15→21:19)
[2021-10-15] MEDS: CITALOpram 10mg tablet PO SCH (08:15)
[2021-10-15] MEDS: folic acid 1mg tablet PO SCH (08:15)
[2021-10-15] MEDS: ondansetron/PF 4mg/2ml inj IV PRN (08:15)
[2021-10-15] MEDS: multivitamins, therapeutics tablet PO SCH (08:15)
[2021-10-15] MEDS: heparin, porcine 5000 units/ml vial SQ SCH ×2 (08:16→21:15)
--- NOTE | 2021-10-15 10:37 | NUR ---
Reassessment: Patient's diet has appropriately been liberalized to regular and pt eating well. Noted pt was NPO at breakfast and lunch 10/13 though with average 65% PO intake the five following meals meeting estimated nutrient needs. LBM 10/12, receiving routine bowel care. D/w dietary to send prunes and prune juice with next meal to further assist with bowel regularity. Will continue to follow and monitor need for further nutrition intervention. Recommendations: 1. Continue regular diet given lipid panel and receiving salt tabs 2. Routine bowel care 3. Scaled wt this admit; subsequent weekly scaled weights Addendum: 10/15/21 at [address] Amended: Links added.
[2021-10-15] MEDS: ROPINIRole 1mg tablet PO SCH (17:11)
[2021-10-15 17:15] LABS: HBSAG SCREEN Negative (Negative); HEP A AB, IGM Negative (Negative); HEPATITIS C ANTIBODY 0.1 s/co ratio (0.0-0.9)
--- NOTE | 2021-10-15 18:34 | NUR ---
Gave report to Jessica TORRES.
[2021-10-15] MEDS: atorvastatin 20mg tablet PO SCH (21:23)
[2021-10-16 02:00] VITALS: BP 125/66
[2021-10-16] MEDS: ipratropium/albuterol 3ml nebule NEB SCH ×6 (03:36→22:26)
[2021-10-16 06:00] VITALS: BP 135/72
[2021-10-16 06:14] LABS: HEMATOCRIT 38.3 % (35.0-45.0); HEMOGLOBIN 13.3 g/dl (12.0-16.0); MEAN CORPUSCULAR HEMOGLOBIN 33.9 PG (27.0-31.0); MEAN CORPUSCULAR HGB CONC 34.7 g/dL (33.0-36.5); MEAN CORPUSCULAR VOLUME 97.8 FL (78-98); MEAN PLATELET VOLUME 7.1 FL (7.4-10.4); PLATELET COUNT 215 X10'3 (140-440); RED BLOOD COUNT 3.92 X10'6 (4.20-5.60); RED CELL DISTRIBUTION WIDTH 13.3 % (11.5-14.5); WHITE BLOOD COUNT 5.5 X10'3 (4.5-11.0)
[2021-10-16 06:29] LABS: ALANINE AMINOTRANSFERASE 38 U/L (12-78); ALBUMIN/GLOBULIN RATIO 0.9 (1.1-1.5); ALKALINE PHOSPHATASE 86 IU/L (46-116); ANION GAP 5 (8-16); ASPARTATE AMINO TRANSFERASE 56 U/L (10-37); BLOOD UREA NITROGEN 6 MG/DL (7-18); BUN/CREATININE RATIO 9.8 (6.6-38.0); CALCIUM 8.1 MG/DL (8.5-10.1); CHLORIDE 91 MMOL/L (99-107); CREATININE 0.61 MG/DL (0.40-0.90); GLUCOSE 104 MG/DL (70-104); MAGNESIUM 1.8 MG/DL (1.5-2.4); PHOSPHORUS 3.6 MG/DL (2.3-4.5); SODIUM 123 MMOL/L (135-145); TOTAL PROTEIN 6.4 G/DL (6.4-8.2); eGFR > 90 ML/MIN
[2021-10-16 06:51] LABS: TOTAL CELLS COUNTED 100
[2021-10-16 06:52] LABS: PLATELET ESTIMATE NORMAL
[2021-10-16] MEDS: docusate sod 100mg capsule PO SCH ×2 (08:00→20:04)
[2021-10-16] MEDS: K and/or MAG REPLACEMENT MC SCH ×2 (08:00→19:41)
[2021-10-16] MEDS: metoprolol tartrate 12.5mg (1/2 tablet) PO SCH ×2 (08:14→20:05)
[2021-10-16] MEDS: thiamine 100mg tablet PO SCH (08:14)
[2021-10-16] MEDS: multivitamins, therapeutics tablet PO SCH (08:14)
[2021-10-16] MEDS: sodium chloride 1gm tablet PO SCH ×4 (08:15→20:04)
[2021-10-16] MEDS: CITALOpram 10mg tablet PO SCH (08:15)
[2021-10-16] MEDS: folic acid 1mg tablet PO SCH (08:15)
[2021-10-16] MEDS: heparin, porcine 5000 units/ml vial SQ SCH ×2 (08:16→20:05)
[2021-10-16] MEDS: TOLVAPTAN 30 MG TABLET PO SCH (10:23)
[2021-10-16 11:00] VITALS: BP 153/70
[2021-10-16 15:00] VITALS: BP 138/63
[2021-10-16] MEDS: ROPINIRole 1mg tablet PO SCH (17:18)
[2021-10-16 18:00] VITALS: BP 91/67
--- NOTE | 2021-10-16 18:18 | NUR ---
Patient in room PCU 3027. I have received report from Irene TORRES and had the opportunity to ask questions and assume patient care.
[2021-10-16] MEDS: atorvastatin 20mg tablet PO SCH (20:04)
[2021-10-16 21:58] VITALS: BP 148/74
[2021-10-17] MEDS: ipratropium/albuterol 3ml nebule NEB SCH ×2 (02:15→07:52)
[2021-10-17 02:30] VITALS: BP 159/70
--- NOTE | 2021-10-17 06:24 | NUR ---
Problems reprioritized. Patient report given, questions answered & plan of care reviewed with João TORRES.
[2021-10-17 07:00] VITALS: BP 147/74
[2021-10-17 07:08] LABS: BASOPHILS % (AUTO) 0.4 % (0-1); EOSINOPHILS # (AUTO) 0.1 X10'3 (0-0.9); LYMPHOCYTES # (AUTO) 0.6 X10'3 (1.1-4.8); LYMPHOCYTES % (AUTO) 13.2 % (21-51); MEAN CORPUSCULAR HEMOGLOBIN 33.7 PG (27.0-31.0); MEAN CORPUSCULAR HGB CONC 34.3 g/dL (33.0-36.5); MEAN CORPUSCULAR VOLUME 98.3 FL (78-98); MEAN PLATELET VOLUME 6.7 FL (7.4-10.4); MONOCYTES # (AUTO) 0.7 X10'3 (0-0.9); MONOCYTES % (AUTO) 14.6 % (2-12); NEUTROPHILS # (AUTO) 3.4 X10'3 (1.8-7.7); NEUTROPHILS % (AUTO) 69.8 % (42-75); PLATELET COUNT 247 X10'3 (140-440); RED BLOOD COUNT 3.86 X10'6 (4.20-5.60); RED CELL DISTRIBUTION WIDTH 13.5 % (11.5-14.5); WHITE BLOOD COUNT 4.8 X10'3 (4.5-11.0)
[2021-10-17 07:24] LABS: ALANINE AMINOTRANSFERASE 37 U/L (12-78); ALBUMIN/GLOBULIN RATIO 0.9 (1.1-1.5); ALKALINE PHOSPHATASE 74 IU/L (46-116); ANION GAP 7 (8-16); ASPARTATE AMINO TRANSFERASE 43 U/L (10-37); BILIRUBIN,TOTAL 0.8 MG/DL (0.1-1.0); BLOOD UREA NITROGEN 5 MG/DL (7-18); BUN/CREATININE RATIO 9.3 (6.6-38.0); CALCIUM 8.5 MG/DL (8.5-10.1); CHLORIDE 100 MMOL/L (99-107); CREATININE 0.54 MG/DL (0.40-0.90); GLUCOSE 116 MG/DL (70-104); MAGNESIUM 1.9 MG/DL (1.5-2.4); POTASSIUM 3.9 MMOL/L (3.5-5.1); SODIUM 131 MMOL/L (135-145); TOTAL CARBON DIOXIDE 24.5 MMOL/L (24-32); TOTAL PROTEIN 6.3 G/DL (6.4-8.2); eGFR > 90 ML/MIN
[2021-10-17] MEDS: K and/or MAG REPLACEMENT MC SCH (07:48)
[2021-10-17] MEDS: thiamine 100mg tablet PO SCH (08:26)
[2021-10-17] MEDS: docusate sod 100mg capsule PO SCH (08:26)
[2021-10-17] MEDS: multivitamins, therapeutics tablet PO SCH (08:26)
[2021-10-17] MEDS: folic acid 1mg tablet PO SCH (08:26)
[2021-10-17] MEDS: CITALOpram 10mg tablet PO SCH (08:27)
[2021-10-17] MEDS: sodium chloride 1gm tablet PO SCH (08:27)
[2021-10-17 08:28] VITALS: BP_SYST 147
[2021-10-17] MEDS: metoprolol tartrate 12.5mg (1/2 tablet) PO SCH (08:28)
[2021-10-17] MEDS: heparin, porcine 5000 units/ml vial SQ SCH (08:28)
[2021-10-17] MEDS: TOLVAPTAN 30 MG TABLET PO SCH (10:09)
== END 2021-10-17 11:10 | DRG 432 ==
LOC: ER 09:42 → ED HOLD 15:53 → PCU 3S 22:24
PROVIDERS: ADMIT Family Medicine; ATTEND Family Medicine
PROC: B32T1ZZ Computerized Tomography (CT Scan) of Left Pulmonary Artery using Low Osmolar Contrast (ICD-10-PCS; 2021-10-08)
PROC: B3201ZZ Computerized Tomography (CT Scan) of Thoracic Aorta using Low Osmolar Contrast (ICD-10-PCS; 2021-10-08)
PROC: B32S1ZZ Computerized Tomography (CT Scan) of Right Pulmonary Artery using Low Osmolar Contrast (ICD-10-PCS; 2021-10-08)
PROC: BW211ZZ Computerized Tomography (CT Scan) of Abdomen and Pelvis using Low Osmolar Contrast (ICD-10-PCS; 2021-10-10)
PROC: 0FB13ZX Excision of Right Lobe Liver, Percutaneous Approach, Diagnostic (ICD-10-PCS; principal; 2021-10-13)
DX: K74.60 Unspecified cirrhosis of liver (principal); J18.9 Pneumonia, unspecified organism; E22.2 Syndrome of inappropriate secretion of antidiuretic hormone; N39.0 Urinary tract infection, site not specified; J98.11 Atelectasis; E78.00 Pure hypercholesterolemia, unspecified; E86.0 Dehydration; G25.81 Restless legs syndrome; R16.0 Hepatomegaly, not elsewhere classified; Z20.822 Contact with and (suspected) exposure to COVID-19; E66.9 Obesity, unspecified; W18.39XA Other fall on same level, initial encounter; E87.8 Other disorders of electrolyte and fluid balance, not elsewhere classified; M54.9 Dorsalgia, unspecified; G89.29 Other chronic pain; F10.20 Alcohol dependence, uncomplicated; Z96.651 Presence of right artificial knee joint; I10 Essential (primary) hypertension; E87.6 Hypokalemia; Z80.1 Family history of malignant neoplasm of trachea, bronchus and lung; Z80.8 Family history of malignant neoplasm of other organs or systems; Z82.49 Family history of ischemic heart disease and other diseases of the circulatory system; Z88.5 Allergy status to narcotic agent; Y93.89 Activity, other specified; Y92.89 Other specified places as the place of occurrence of the external cause; Y99.8 Other external cause status; Z68.31 Body mass index [BMI] 31.0-31.9, adult; Z71.41 Alcohol abuse counseling and surveillance of alcoholic
CPT/HCPCS: 36415; 47000; 71045; 71275; 74178; 77012; 80048; 80053; 80061; 81001; 81003; 82103; 82150; 82378; 82570; 83036; 83605; 83690; 83735; 83880; 83935; 84100; 84133; 84156; 84300; 84439; 84443; 84484; 85007; 85025; 85379; 85610; 86301; 86304; 86705; 86706; 86709; 86803; 87040; 87081; 87088; 87340; 87635; 88307; 88313; 93306; 93971; 94640; 94664; 94668; 94760; 97110; 97116; 97162; 97530; 97535; 99285; C1729; G0378; J1644; J1956; J2250; J2405; J3010; J3475; J3490; J7030; J7040; Q9963; Q9967

== ENCOUNTER 2022-12-29 11:33 | Inpatient (IN) | payer MEDICARE, OTHER ==
[~2022-12-29] VITALS: Ht 172.7 cm; Wt 90.9 kg
[~2022-12-29 11:33] MED LIST changes: +ATOR20TA PO; +CITA10TA93 PO; +LOP12.5T PO; +MECL-302 PO; -POTA25TA11 PO; +ROPI1TAB47 PO; -iohexol 350MG/ML 100ml bottle IV ONE
[2022-12-29 12:06] LABS: EOSINOPHILS # (AUTO) 0.1 X10'3 (0-0.9); HEMATOCRIT 36.4 % (35.0-45.0); HEMOGLOBIN 12.3 g/dl (12.0-16.0); MEAN PLATELET VOLUME 7.2 FL (7.4-10.4); MONOCYTES # (AUTO) 0.5 X10'3 (0-0.9); WHITE BLOOD COUNT 6.8 X10'3 (4.5-11.0)
[2022-12-29 12:07] LABS: BASOPHILS % (AUTO) 0.5 % (0-1); EOSINOPHILS % (AUTO) 1.4 % (0-6); LYMPHOCYTES # (AUTO) 0.9 X10'3 (1.1-4.8); LYMPHOCYTES % (AUTO) 13.6 % (21-51); MEAN CORPUSCULAR HEMOGLOBIN 32.4 PG (27.0-31.0); MEAN CORPUSCULAR HGB CONC 33.9 g/dL (33.0-36.5); MEAN CORPUSCULAR VOLUME 95.8 FL (78-98); MONOCYTES % (AUTO) 7.8 % (2-12); NEUTROPHILS # (AUTO) 5.2 X10'3 (1.8-7.7); NEUTROPHILS % (AUTO) 76.7 % (42-75); PLATELET COUNT 251 X10'3 (140-440); RED BLOOD COUNT 3.81 X10'6 (4.20-5.60); RED CELL DISTRIBUTION WIDTH 13.7 % (11.5-14.5)
[2022-12-29 12:13] LABS: ALANINE AMINOTRANSFERASE 31 U/L (12-78); ALBUMIN 3.1 G/DL (3.4-5.0); ALBUMIN/GLOBULIN RATIO 0.9 (1.1-1.5); ALKALINE PHOSPHATASE 106 IU/L (46-116); ANION GAP 4 (8-16); ASPARTATE AMINO TRANSFERASE 33 U/L (10-37); BILIRUBIN,TOTAL 0.9 MG/DL (0.1-1.0); BLOOD UREA NITROGEN 11 MG/DL (7-18); BUN/CREATININE RATIO 17.2 (10.0-20.0); CALCIUM 8.6 MG/DL (8.5-10.1); CHLORIDE 91 MMOL/L (99-107); CREATININE 0.64 MG/DL (0.40-0.90); POTASSIUM 3.7 MMOL/L (3.5-5.1); SODIUM 123 MMOL/L (135-145); TOTAL CARBON DIOXIDE 27.6 MMOL/L (24-32); TOTAL PROTEIN 6.6 G/DL (6.4-8.2); eCRCL 64 ML/MIN; eGFR 88 ML/MIN
[2022-12-29 12:19] LABS: PRO BRAIN NATRIURETIC PEPTIDE 499 PG/ML (0-450)
[2022-12-29 12:26] LABS: GLUCOSE 141 MG/DL (70-104)
[2022-12-29] MEDS ORDERED: VANCOmycin 1250MG/NS 250ml Bag 250 ML IV ONE (20:35)
[2022-12-29] MEDS ORDERED: piperacillin/tazo 4.5gm/100ml 100 ML IV ONE (20:35)
[2022-12-29] MEDS ORDERED: furosemide 10 MG/1 ML 10ml inj IV ONE (20:35)
[2022-12-29] MEDS ORDERED: temazepam 15mg capsule PO PRN (21:00)
[2022-12-29] MEDS ORDERED: mag hydrox/Alum hydrox/simeth 30ml oral suspension PO PRN (22:40)
[2022-12-29] MEDS ORDERED: bisacodyl 10mg suppository rectal RC PRN (22:40)
[2022-12-29] MEDS ORDERED: ondansetron 4mg rapidly disintigrating tab PO PRN (22:40)
[2022-12-29] MEDS ORDERED: diphenhydrAMINE 50 mg/ml inj IV PRN (22:40)
[2022-12-29] MEDS ORDERED: ondansetron/PF 4mg/2ml inj IV PRN (22:40)
[2022-12-29] MEDS ORDERED: diphenhydrAMINE 25mg capsule PO PRN (22:40)
[2022-12-29] MEDS ORDERED: acetaminophen 325mg tablet PO PRN (22:40)
[2022-12-29] MEDS ORDERED: magnesium hydroxide 30ml (MOM) UD suspension PO PRN (22:40)
[2022-12-29] MEDS ORDERED: acetaminophen 650mg rectal suppository RC PRN (22:40)
[2022-12-29 23:42] LABS: APTT 29 SECONDS (22-32); PROTHROMBIN TIME 10.9 SECONDS (9.0-12.0)
[2022-12-30] LABS: MAGNESIUM 1.5 MG/DL (1.5-2.4); PHOSPHORUS 3.6 MG/DL (2.3-4.5)
[2022-12-30] MEDS: normal saline 1000ml 1,000 ML IV SCH ×2 (00:07→19:00)
[2022-12-30] MEDS ORDERED: HYDR12.55 PO (00:42)
[2022-12-30] MEDS ORDERED: MAGN400C PO (00:43)
--- NOTE | 2022-12-30 01:00 | NUR ---
pt brought to room via gurney accompanied by ER Nurse. Educated pt health consultant light and room with verbalized understanding. heart monitor placed. will continue to monitor.
[2022-12-30] MEDS: heparin, porcine 5000 units/ml vial SQ SCH ×3 (01:16→15:33)
[2022-12-30 01:20] VITALS: BP 136/64; PULSE 86; RESP 18; TEMP 97.7; O2SAT 94
[2022-12-30] MEDS: ROPINIRole 1mg tablet PO PRN (04:56)
[2022-12-30 06:00] VITALS: BP 96/63; PULSE 83; RESP 16; TEMP 98.1; O2SAT 94
--- NOTE | 2022-12-30 06:04 | NUR ---
Problems reprioritized. Patient report given, questions answered & plan of care reviewed with BRIAN Fernandez.
--- NOTE | 2022-12-30 06:29 | NUR ---
Patient in room ORTHO 4022. I have received report from BRIAN Burgos and had the opportunity to ask questions and assume patient care.
[2022-12-30 06:39] LABS: BASOPHILS % (AUTO) 0.4 % (0-1); EOSINOPHILS # (AUTO) 0.1 X10'3 (0-0.9); EOSINOPHILS % (AUTO) 1.6 % (0-6); HEMATOCRIT 33.4 % (35.0-45.0); HEMOGLOBIN 11.5 g/dl (12.0-16.0); LYMPHOCYTES # (AUTO) 0.7 X10'3 (1.1-4.8); LYMPHOCYTES % (AUTO) 11.8 % (21-51); MEAN CORPUSCULAR HEMOGLOBIN 32.6 PG (27.0-31.0); MEAN CORPUSCULAR HGB CONC 34.3 g/dL (33.0-36.5); MONOCYTES # (AUTO) 0.6 X10'3 (0-0.9); NEUTROPHILS # (AUTO) 4.7 X10'3 (1.8-7.7); NEUTROPHILS % (AUTO) 76.2 % (42-75); PLATELET COUNT 236 X10'3 (140-440); RED BLOOD COUNT 3.52 X10'6 (4.20-5.60); RED CELL DISTRIBUTION WIDTH 13.3 % (11.5-14.5); WHITE BLOOD COUNT 6.2 X10'3 (4.5-11.0)
[2022-12-30 06:57] LABS: ALANINE AMINOTRANSFERASE 26 U/L (12-78); ALBUMIN 2.8 G/DL (3.4-5.0); ALBUMIN/GLOBULIN RATIO 0.9 (1.1-1.5); ALKALINE PHOSPHATASE 88 IU/L (46-116); ANION GAP 6 (8-16); ASPARTATE AMINO TRANSFERASE 37 U/L (10-37); BILIRUBIN,TOTAL 0.8 MG/DL (0.1-1.0); BLOOD UREA NITROGEN 9 MG/DL (7-18); CALCIUM 8.1 MG/DL (8.5-10.1); CHLORIDE 92 MMOL/L (99-107); CHOL/HDL RATIO 1.4 (0.00-4.99); CHOLESTEROL 86 MG/DL (0-200); HDL CHOLESTEROL 62 MG/DL (35-60); LDL CHOLESTEROL 21 MG/DL (50-100); POTASSIUM 3.6 MMOL/L (3.5-5.1); SODIUM 125 MMOL/L (135-145); TOTAL CARBON DIOXIDE 27.1 MMOL/L (24-32); TOTAL PROTEIN 5.9 G/DL (6.4-8.2); TRIGLYCERIDES 41 MG/DL (20-135); eCRCL 68 ML/MIN; eGFR > 90 ML/MIN
[2022-12-30 06:59] LABS: GLUCOSE 134 MG/DL (70-104)
[2022-12-30] MEDS: pantoprazole 40mg Tablet.DR PO SCH (07:03)
[2022-12-30] MEDS ORDERED: furosemide 10 MG/1 ML 10ml inj IV ONE (08:00)
[2022-12-30] MEDS ORDERED: docusate sod 100mg capsule PO SCH (08:00)
[2022-12-30] MEDS ORDERED: piperacillin/tazo 4.5gm/100ml 100 ML IV SCH (08:00)
[2022-12-30 10:00] VITALS: BP 122/66; PULSE 87; RESP 16; TEMP 98.2; O2SAT 93
--- NOTE | 2022-12-30 10:15 | NUR ---
LATE ENTRY: The following was taken from the patients H&P: This 87 yr. old came to the ER with family reporting concerns of bilateral LE increased redness and swelling. She has a medical history of HTN, dyslipidemia, CHF, hypoalbumenia, chronic back pain and alcoholic liver cirrhosis. 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 She denies the use of tobacco and illicit drugs. She lives home with family. CXR was negative for acute abnormalities. Her most recent labs show a WBC of 6.2, HGB 11.5, BUN 9, BG 134 and an albumin of 2.8. She was admitted for medical management of BLE cellulitis per progress notes. Wound care in for evaluation of BLEs per nursing consult request. The pt. was found sitting up in bed in no apparent acute distress. Greeted and explained the intent. She appears to be A/O x4, agreeable to care. Maryanne care rendered secondary to urinary incontinence. Her sacrococcygeal area is with intact, pink and blanching skin. Both off her heels have intact pink and blanching skin. She was assisted to reposition supine. She has firm edema from her bilateral flanks to her feet. The skin on her legs has intact erythemous edema. The remainder of her skin appears free from breakdown. Her legs were cleansed and skin repair cream applied. She is able to reposition herself in bed, legs floated. Educated concerning pressure injury prevention. Report was given to the primary nurse. [facility] will not follow this patient as she has no open skin areas and demonstrated good mobility.
[2022-12-30] MEDS: vancomycin/NS 1 GM ADD-VANTAGE 250 ML IV SCH ×2 (10:32→21:34)
[2022-12-30 18:00] VITALS: BP 125/62; PULSE 86; RESP 12; TEMP 99.5; O2SAT 93
--- NOTE | 2022-12-30 18:00 | NUR ---
Problems reprioritized. Patient report given, questions answered & plan of care reviewed with BRIAN Joiner.
[2022-12-30] MEDS: ROPINIRole 1mg tablet PO SCH (20:06)
[2022-12-30] MEDS: atorvastatin 20mg tablet PO SCH (20:06)
[2022-12-30] MEDS: metoprolol tartrate 12.5mg (1/2 tablet) PO SCH (20:06)
[2022-12-30] MEDS: diphenhydrAMINE 2%/zinc acetate cream TP SCH (21:20)
[2022-12-30 22:00] VITALS: BP 128/72; PULSE 84; RESP 15; TEMP 97.9; O2SAT 94
[2022-12-31] MEDS: heparin, porcine 5000 units/ml vial SQ SCH ×3 (00:16→16:45)
[2022-12-31] MEDS: normal saline 1000ml 1,000 ML IV SCH (05:07)
[2022-12-31 06:00] VITALS: BP 139/73; PULSE 65; RESP 15; TEMP 98.2; O2SAT 93
--- NOTE | 2022-12-31 06:12 | NUR ---
Problems reprioritized. Patient report given, questions answered & plan of care reviewed with BRIAN Fernandez.
--- NOTE | 2022-12-31 06:47 | NUR ---
Patient in room ORTHO 4022. I have received report from BRIAN Joiner and had the opportunity to ask questions and assume patient care.
[2022-12-31] MEDS: diphenhydrAMINE 2%/zinc acetate cream TP SCH ×3 (08:00→20:54)
[2022-12-31] MEDS: pantoprazole 40mg Tablet.DR PO SCH (08:06)
[2022-12-31] MEDS: metoprolol tartrate 12.5mg (1/2 tablet) PO SCH ×2 (08:07→20:53)
[2022-12-31] MEDS: CITALOpram 10mg tablet PO SCH (08:07)
--- NOTE | 2022-12-31 08:41 | NUR ---
PRESSURE ULCER EDUCATION: DEFINITION: A pressure ulcer is an area of skin that breaks down when you stay in one position too long. The constant pressure against the skin reduces the blood flow to that area and the affected tissue dies. CAUSES: "Being bedridden or in a wheelchair "Fragile skin "Having a chronic condition, such as diabetes or vascular disease "Inability to move certain parts of your body without assistance "Older age "Incontinence of urine or stool SYMPTOMS: "A reddened area that DOES NOT turn white when pressed on - this can be the beginning of a pressure ulcer "A blister, deep sore or a crater - these can be advanced pressure ulcers FIRST AID: "Relieve the pressure on this area "Keep the area clean and dry "Call your primary doctor if you see any of the above symptoms "DO NOT massage the area "DO NOT use a donut shaped or ring shaped pillow- these actually interfere with the blood flow and cause complications PREVENTION: "Check for pressure ulcers everyday "Change position at least every two hours to relieve pressure "Use items that help relieve pressure- pillows, sheepskin, foam padding, and powders. "Keep skin clean and dry "Eat healthy well balanced meals "Exercise daily IF YOU SEE ANY OF THESE SYMPTOMS WHILE IN THE HOSPITAL - TELL YOUR NURSE IMMEDIATELY. IF YOU SEE ANY OF THESE SYMPTOMS WHILE AT HOME OR HAVE ANY QUESTIONS OR CONCERNS ABOUT PRESSURE ULCERS - CALL YOUR PRIMARY DOCTOR IMMEDIATELY. Addendum: 12/31/22 at 0845 by Adry Lantigua LVN Amended: Links added.
[2022-12-31] MEDS ORDERED: VANCOMYCIN LEVEL IV ONE (09:30)
[2022-12-31 09:33] LABS: BASOPHILS % (AUTO) 0.4 % (0-1); EOSINOPHILS # (AUTO) 0.1 X10'3 (0-0.9); EOSINOPHILS % (AUTO) 2.2 % (0-6); HEMATOCRIT 34.4 % (35.0-45.0); HEMOGLOBIN 11.5 g/dl (12.0-16.0); LYMPHOCYTES # (AUTO) 0.8 X10'3 (1.1-4.8); LYMPHOCYTES % (AUTO) 14.3 % (21-51); MEAN CORPUSCULAR HEMOGLOBIN 32.2 PG (27.0-31.0); MEAN CORPUSCULAR HGB CONC 33.3 g/dL (33.0-36.5); MEAN CORPUSCULAR VOLUME 96.7 FL (78-98); MEAN PLATELET VOLUME 7.3 FL (7.4-10.4); MONOCYTES # (AUTO) 0.6 X10'3 (0-0.9); MONOCYTES % (AUTO) 10.2 % (2-12); NEUTROPHILS # (AUTO) 4.1 X10'3 (1.8-7.7); NEUTROPHILS % (AUTO) 72.9 % (42-75); PLATELET COUNT 223 X10'3 (140-440); RED BLOOD COUNT 3.56 X10'6 (4.20-5.60); RED CELL DISTRIBUTION WIDTH 13.5 % (11.5-14.5); WHITE BLOOD COUNT 5.6 X10'3 (4.5-11.0)
[2022-12-31 09:47] LABS: ALANINE AMINOTRANSFERASE 27 U/L (12-78); ALBUMIN 2.8 G/DL (3.4-5.0); ALBUMIN/GLOBULIN RATIO 0.8 (1.1-1.5); ALKALINE PHOSPHATASE 83 IU/L (46-116); ANION GAP 5 (8-16); ASPARTATE AMINO TRANSFERASE 39 U/L (10-37); BILIRUBIN,TOTAL 0.5 MG/DL (0.1-1.0); BLOOD UREA NITROGEN 9 MG/DL (7-18); BUN/CREATININE RATIO 13.2 (10.0-20.0); CALCIUM 8.1 MG/DL (8.5-10.1); CHLORIDE 95 MMOL/L (99-107); CREATININE 0.68 MG/DL (0.40-0.90); POTASSIUM 3.8 MMOL/L (3.5-5.1); SODIUM 128 MMOL/L (135-145); TOTAL CARBON DIOXIDE 27.8 MMOL/L (24-32); TOTAL PROTEIN 6.2 G/DL (6.4-8.2); eCRCL 60 ML/MIN; eGFR 82 ML/MIN
[2022-12-31 09:48] LABS: GLUCOSE 149 MG/DL (70-104)
--- NOTE | 2022-12-31 10:27 | NUR ---
tad-ortho/neuro- 5430 Pt RM: 4022A- Ursula Garcia- has been cleared by PT if planning on discharging patient.
[2022-12-31] MEDS: VANCOMYCIN 1,500MG in normal saline IV soln 300 ML IV SCH (13:00)
[2022-12-31] MEDS: ROPINIRole 1mg tablet PO PRN (16:44)
[2022-12-31 18:00] VITALS: BP 166/69; PULSE 69; RESP 17; TEMP 97.8; O2SAT 92
--- NOTE | 2022-12-31 18:19 | NUR ---
Problems reprioritized. Patient report given, questions answered & plan of care reviewed with BRIAN Rider.
[2022-12-31 20:00] VITALS: RESP 17; O2SAT 92
[2022-12-31] MEDS: atorvastatin 20mg tablet PO SCH (20:52)
[2022-12-31] MEDS: ROPINIRole 1mg tablet PO SCH (20:53)
[2022-12-31 22:00] VITALS: BP 178/87; PULSE 73; RESP 16; TEMP 98.1; O2SAT 94
[2023-01-01] VITALS (7 sets, daily range): BP systolic 141–181; BP diastolic 71–89; PULSE 71–83; RESP 16–20; TEMP 97.9–98.5; O2SAT 91–95
[2023-01-01] MEDS: VANCOMYCIN 1,500MG in normal saline IV soln 300 ML IV SCH ×2 (01:10→13:50)
[2023-01-01] MEDS: heparin, porcine 5000 units/ml vial SQ SCH ×3 (01:10→17:00)
--- NOTE | 2023-01-01 06:30 | NUR ---
Patient in room ORTHO 4022. I have received report from BRIAN Rider and had the opportunity to ask questions and assume patient care.
[2023-01-01 06:31] LABS: BASOPHILS % (AUTO) 0.4 % (0-1); EOSINOPHILS # (AUTO) 0.1 X10'3 (0-0.9); EOSINOPHILS % (AUTO) 1.5 % (0-6); HEMATOCRIT 34.9 % (35.0-45.0); HEMOGLOBIN 12.1 g/dl (12.0-16.0); LYMPHOCYTES # (AUTO) 0.7 X10'3 (1.1-4.8); LYMPHOCYTES % (AUTO) 9.6 % (21-51); MEAN CORPUSCULAR HEMOGLOBIN 33.2 PG (27.0-31.0); MEAN CORPUSCULAR HGB CONC 34.5 g/dL (33.0-36.5); MEAN CORPUSCULAR VOLUME 96.2 FL (78-98); MEAN PLATELET VOLUME 7.4 FL (7.4-10.4); MONOCYTES # (AUTO) 0.6 X10'3 (0-0.9); MONOCYTES % (AUTO) 8.6 % (2-12); NEUTROPHILS # (AUTO) 5.5 X10'3 (1.8-7.7); NEUTROPHILS % (AUTO) 79.9 % (42-75); PLATELET COUNT 231 X10'3 (140-440); RED BLOOD COUNT 3.63 X10'6 (4.20-5.60); RED CELL DISTRIBUTION WIDTH 13.4 % (11.5-14.5); WHITE BLOOD COUNT 6.9 X10'3 (4.5-11.0)
[2023-01-01 06:32] LABS: ALANINE AMINOTRANSFERASE 28 U/L (12-78); ALBUMIN 2.9 G/DL (3.4-5.0); ALBUMIN/GLOBULIN RATIO 0.9 (1.1-1.5); ALKALINE PHOSPHATASE 78 IU/L (46-116); ANION GAP 8 (8-16); ASPARTATE AMINO TRANSFERASE 41 U/L (10-37); BILIRUBIN,TOTAL 0.9 MG/DL (0.1-1.0); BLOOD UREA NITROGEN 7 MG/DL (7-18); BUN/CREATININE RATIO 12.3 (10.0-20.0); CALCIUM 8.5 MG/DL (8.5-10.1); CHLORIDE 95 MMOL/L (99-107); CREATININE 0.57 MG/DL (0.40-0.90); POTASSIUM 3.6 MMOL/L (3.5-5.1); SODIUM 129 MMOL/L (135-145); TOTAL CARBON DIOXIDE 26.5 MMOL/L (24-32); TOTAL PROTEIN 6.2 G/DL (6.4-8.2); eCRCL 71 ML/MIN; eGFR > 90 ML/MIN
[2023-01-01 06:33] LABS: GLUCOSE 141 MG/DL (70-104)
--- NOTE | 2023-01-01 06:33 | NUR ---
Problems reprioritized. Patient report given, questions answered & plan of care reviewed with HAKEEM LARSEN.
[2023-01-01] MEDS: pantoprazole 40mg Tablet.DR PO SCH (07:48)
[2023-01-01] MEDS: CITALOpram 10mg tablet PO SCH (07:48)
[2023-01-01] MEDS: metoprolol tartrate 12.5mg (1/2 tablet) PO SCH ×2 (07:49→20:00)
[2023-01-01] MEDS: diphenhydrAMINE 2%/zinc acetate cream TP SCH ×3 (08:00→21:00)
[2023-01-01] MEDS: normal saline 1000ml 1,000 ML IV SCH (10:40)
[2023-01-01] MEDS: atorvastatin 20mg tablet PO SCH (21:40)
[2023-01-01] MEDS: ROPINIRole 1mg tablet PO SCH (21:41)
[2023-01-02] MEDS ORDERED: VANCOMYCIN LEVEL IV ONE ×2 (00:30→12:30)
--- NOTE | 2023-01-02 04:26 | NUR ---
VANCO TROUGH AND ABX NOT DONE AT 0030 AND 0100 D/T I HAD A PATIENT AT THIS TIME AND MISSED THIS ORDER. PHARMACY CALLED AND AWAITING CALL BACK ON WHAT TO DO ABOUT THIS.
[2023-01-02] MEDS: VANCOMYCIN 1,500MG in normal saline IV soln 300 ML IV SCH (04:40)
[2023-01-02 05:00] VITALS: BP 176/97; PULSE 75; RESP 16; TEMP 97.5; O2SAT 94
[2023-01-02 06:27] LABS: BASOPHILS % (AUTO) 0.3 % (0-1); EOSINOPHILS # (AUTO) 0.1 X10'3 (0-0.9); EOSINOPHILS % (AUTO) 2.2 % (0-6); HEMOGLOBIN 11.8 g/dl (12.0-16.0); LYMPHOCYTES # (AUTO) 0.7 X10'3 (1.1-4.8); LYMPHOCYTES % (AUTO) 13.9 % (21-51); MEAN CORPUSCULAR HEMOGLOBIN 32.4 PG (27.0-31.0); MEAN CORPUSCULAR HGB CONC 33.7 g/dL (33.0-36.5); MEAN CORPUSCULAR VOLUME 96.3 FL (78-98); MEAN PLATELET VOLUME 7.3 FL (7.4-10.4); MONOCYTES # (AUTO) 0.6 X10'3 (0-0.9); MONOCYTES % (AUTO) 10.9 % (2-12); NEUTROPHILS # (AUTO) 3.9 X10'3 (1.8-7.7); NEUTROPHILS % (AUTO) 72.7 % (42-75); PLATELET COUNT 215 X10'3 (140-440); RED BLOOD COUNT 3.63 X10'6 (4.20-5.60); RED CELL DISTRIBUTION WIDTH 13.5 % (11.5-14.5); WHITE BLOOD COUNT 5.4 X10'3 (4.5-11.0)
--- NOTE | 2023-01-02 06:38 | NUR ---
Problems reprioritized. Patient report given, questions answered & plan of care reviewed with NOLBERTO RN'S.
[2023-01-02 07:00] LABS: ALANINE AMINOTRANSFERASE 34 U/L (12-78); ALBUMIN/GLOBULIN RATIO 0.9 (1.1-1.5); ALKALINE PHOSPHATASE 79 IU/L (46-116); ANION GAP 7 (8-16); ASPARTATE AMINO TRANSFERASE 54 U/L (10-37); BILIRUBIN,TOTAL 0.9 MG/DL (0.1-1.0); BLOOD UREA NITROGEN 6 MG/DL (7-18); BUN/CREATININE RATIO 11.5 (10.0-20.0); CALCIUM 8.4 MG/DL (8.5-10.1); CHLORIDE 96 MMOL/L (99-107); CREATININE 0.52 MG/DL (0.40-0.90); POTASSIUM 3.5 MMOL/L (3.5-5.1); SODIUM 131 MMOL/L (135-145); TOTAL CARBON DIOXIDE 28.3 MMOL/L (24-32); TOTAL PROTEIN 6.4 G/DL (6.4-8.2); eCRCL 78 ML/MIN; eGFR > 90 ML/MIN
[2023-01-02 07:06] LABS: GLUCOSE 126 MG/DL (70-104)
[2023-01-02] MEDS: metoprolol tartrate 12.5mg (1/2 tablet) PO SCH (08:09)
[2023-01-02] MEDS: heparin, porcine 5000 units/ml vial SQ SCH ×2 (08:09)
[2023-01-02] MEDS: CITALOpram 10mg tablet PO SCH (08:10)
[2023-01-02] MEDS: pantoprazole 40mg Tablet.DR PO SCH (08:10)
[2023-01-02 10:00] VITALS: BP 124/61; PULSE 71; RESP 18; TEMP 98.3; O2SAT 94
[2023-01-02 10:37] VITALS: RESP 16
[2023-01-02] MEDS ORDERED: CEPH-585 PO (11:27)
--- NOTE | 2023-01-02 11:43 | NUR ---
Initial: Pt admit DX BLE cellulitis, liver cirrhosis from prior hx etoh, hyponatremia, CAD, depression, dyslipidemia, and chronic pain syndrome per EMR. PO ~88% initial regular/1L fluid-restricted diet meeting estimated needs. LBM 01/01 per EMR. No nutrition interventions at this time. Will continue to follow. Rec: 1. continue regular/1L fluid-restricted diet per MD 2. bowel care per rx 3. weekly wt Addendum: 01/02/23 at [address] Amended: Links added.
== END 2023-01-02 14:45 | disposition home or self-care (01) | DRG 602 ==
LOC: ER 11:34 → ED HOLD 22:46 → EDBEDREQ 12-30 00:02 → ORTHO 4S 12-30 00:40
PROVIDERS: ADMIT Family Medicine; ATTEND Internal Medicine
DX: L03.115 Cellulitis of right lower limb (principal); I50.33 Acute on chronic diastolic (congestive) heart failure; E87.1 Hypo-osmolality and hyponatremia; I11.0 Hypertensive heart disease with heart failure; E78.5 Hyperlipidemia, unspecified; L03.116 Cellulitis of left lower limb; K70.30 Alcoholic cirrhosis of liver without ascites; E88.09 Other disorders of plasma-protein metabolism, not elsewhere classified; G89.4 Chronic pain syndrome; R26.9 Unspecified abnormalities of gait and mobility; L30.9 Dermatitis, unspecified; I25.10 Atherosclerotic heart disease of native coronary artery without angina pectoris; F10.10 Alcohol abuse, uncomplicated; G25.81 Restless legs syndrome; Y90.9 Presence of alcohol in blood, level not specified; E78.00 Pure hypercholesterolemia, unspecified; Z79.899 Other long term (current) drug therapy; Z88.5 Allergy status to narcotic agent
CPT/HCPCS: 36415; 71045; 80053; 80061; 80202; 83036; 83605; 83735; 83880; 83930; 84100; 84484; 85025; 85610; 85730; 87040; 87081; 97110; 97116; 97161; 97530; 99285; G0378; J1644; J1940; J2405; J2543; J3370; J7030; J7040